=== PATIENT | male | born 1980 | race Caucasian/White ===

== ENCOUNTER 2016-12-13 00:14 | Emergency (ER) | payer OTHER ==
[~2016-12-13] VITALS: Ht 175.3 cm; Wt 59.0 kg
[2016-12-13 00:36] VITALS: BP 116/73
== END 2016-12-13 00:36 | disposition other institution (70) ==
LOC: ED 00:14
DX: Z02.89 Encounter for other administrative examinations (principal)

== ENCOUNTER 2017-01-12 21:50 | Emergency (ER) | payer OTHER ==
[2017-01-12 22:30] VITALS: BP 98/68
== END 2017-01-12 22:30 | disposition other institution (70) ==
LOC: ED 21:50
DX: S60.511A Abrasion of right hand, initial encounter (principal); G56.31 Lesion of radial nerve, right upper limb; V29.69XA Unspecified motorcycle rider injured in collision with other motor vehicles in traffic accident, initial encounter; Y93.89 Activity, other specified; Y99.8 Other external cause status; Y92.89 Other specified places as the place of occurrence of the external cause
CPT/HCPCS: 90715

== ENCOUNTER 2017-01-12 21:50 | Emergency (ER) | payer OTHER | END 2017-01-12 22:30 | disposition other institution (70) | LOC: ED 21:50 | DX: Z02.89 Encounter for other administrative examinations (principal) ==

== ENCOUNTER 2017-01-26 01:17 | Emergency (ER) | payer OTHER | END 2017-01-26 04:15 | disposition other institution (70) | LOC: ED 01:17 | DX: Z02.89 Encounter for other administrative examinations (principal) ==

== ENCOUNTER 2017-01-26 01:17 | Emergency (ER) | payer OTHER ==
[2017-01-26 04:15] VITALS: BP 109/71
== END 2017-01-26 04:15 | disposition other institution (70) ==
LOC: ED 01:17
DX: S13.9XXA Sprain of joints and ligaments of unspecified parts of neck, initial encounter (principal); I10 Essential (primary) hypertension; E11.9 Type 2 diabetes mellitus without complications; Z79.4 Long term (current) use of insulin; X58.XXXA Exposure to other specified factors, initial encounter; Y93.89 Activity, other specified; Y99.8 Other external cause status; Y92.89 Other specified places as the place of occurrence of the external cause
CPT/HCPCS: 82962

== ENCOUNTER 2020-10-29 00:16 | Emergency (ER) | payer OTHER ==
[~2020-10-29] VITALS: Ht 175.3 cm; Wt 60.8 kg
[2020-10-29 00:25] VITALS: Ht 175.3 cm; Wt 60.8 kg
[2020-10-29 03:46] LABS: PLATELET COUNT 152 x10^3mcL (152-348)
[2020-10-29 03:48] LABS: RED CELL DISTRIBUTION WIDTH 14.9 % (12.1-16.2)
[2020-10-29 04:06] LABS: CALCIUM 9.1 mg/dL (8.5-10.1); CARBON DIOXIDE 27.2 mmol/L (21-32); CHLORIDE SERUM 100 mmol/L (98-107); CREATININE SERUM 0.7 mg/dL (0.7-1.3); GFR1 > 60 mL/min; GLUCOSE SERUM 85 mg/dL (74-106); POTASSIUM SERUM 4.1 mmol/L (3.5-5.1); SODIUM SERUM 136 mmol/L (136-145)
[2020-10-29 04:20] LABS: ALBUMIN 3.4 g/dL (3.4-5.0); ALKALINE PHOSPHATASE 76 U/L (46-116); ALT/SGPT 95 U/L (16-63); AST/SGOT 75 U/L (15-37); BILIRUBIN TOTAL 0.3 mg/dL (0.20-1.00); C REACTIVE PROTEIN 2.7 mg/dL (<=0.9); TOTAL PROTEIN, SERUM 7.1 g/dL (6.4-8.2)
[2020-10-29 04:31] LABS: ERYTHROCYTE SED RATE 27 mm/hr (0-15)
[2020-10-29 08:23] VITALS: BP 120/72
== END 2020-10-29 09:26 | disposition short-term general hospital (02) ==
LOC: ED 00:16
PROVIDERS: Student in an Organized Health Care Education/Training Program
DX: M65.842 Other synovitis and tenosynovitis, left hand (principal); L03.114 Cellulitis of left upper limb; L08.9 Local infection of the skin and subcutaneous tissue, unspecified; I10 Essential (primary) hypertension; E11.9 Type 2 diabetes mellitus without complications; F17.210 Nicotine dependence, cigarettes, uncomplicated; F15.10 Other stimulant abuse, uncomplicated; Z91.012 Allergy to eggs; Z20.822 Contact with and (suspected) exposure to COVID-19
CPT/HCPCS: J2270; J2543; J3370; J7050